=== PATIENT | male | born 1990 | race African-American/Black ===

== ENCOUNTER 2020-01-06 07:17 | Emergency (ER) | payer OTHER ==
[~2020-01-06] VITALS: Ht 175.3 cm; Wt 74.8 kg
[~2020-01-06 07:17] MED LIST: IBUPROFEN 600600 M1 PO; ZOFRAN ODT4 MG PO
[2020-01-06 08:02] LABS: INFLUENZA A ANTIGEN Negative (Negative); INFLUENZA B ANTIGEN Negative (Negative)
[2020-01-06] MEDS ORDERED: ZOFRAN ODT4 MG SUBLING (08:11)
[2020-01-06] MEDS ORDERED: IBUPROFEN 800800 MG PO (08:11)
[2020-01-06 08:23] VITALS: BP 109/73
== END 2020-01-06 08:24 | disposition home or self-care (01) ==
LOC: M.ERS 07:17
PROVIDERS: Family Medicine
DX: B34.9 Viral infection, unspecified (principal); R11.2 Nausea with vomiting, unspecified; R19.7 Diarrhea, unspecified; F12.90 Cannabis use, unspecified, uncomplicated; J45.909 Unspecified asthma, uncomplicated